=== PATIENT | female | born 1965 | race Caucasian/White ===

== ENCOUNTER 2023-08-25 09:04 | Day surgery (SDC) | payer BC ==
[2023-08-23 15:44] VITALS: BMI 39.7
[2023-08-25] MEDS ORDERED: Oxymetazoline HCl 0.05% (30 ML BOT) ONE ×2 (09:35→10:08)
[2023-08-25] MEDS ORDERED: SUCCINYLCHOLINE/SOD CL,ISO/PF 200 MG/10 ML SYRINGE FS ONE (10:05)
[2023-08-25] MEDS ORDERED: fentaNYL 50 mcg/mL 1 mL Vial ONE ×2 (10:05→11:00)
[2023-08-25] MEDS ORDERED: Lidocaine 2% PF 5 ML VIAL ONE (10:05)
[2023-08-25] MEDS ORDERED: PROPOFOL 20 ML ONE (10:05)
[2023-08-25] MEDS ORDERED: EPINEPHrine 1 MG/ML VIAL ONE (10:08)
[2023-08-25] MEDS ORDERED: Lidocaine 1% (PF) 30 ML VIAL ONE (10:08)
[2023-08-25] MEDS ORDERED: Famotidine/PF 20 mg/2ml Vial ONE (10:09)
[2023-08-25] MEDS ORDERED: Lidocaine 1% MPF 2 ML VIAL ONE (10:09)
[2023-08-25] MEDS ORDERED: Ondansetron PF 4 MG/2 ML Vial ONE (10:15)
[2023-08-25] MEDS ORDERED: Ketorolac Tromethamine 30 MG (1 mL) VIAL ONE (10:15)
[2023-08-25] MEDS ORDERED: Dexamethasone 4 mg/ml Vial ONE (10:15)
[2023-08-25] MEDS ORDERED: Metoclopramide HCl 10 MG (2 mL) VIAL ONE (10:20)
[2023-08-25 10:35] LABS: Hematocrit 42.7 % (36.0-47.0)
[2023-08-25] MEDS ORDERED: PHENYLEPHRINE-NS 100 MCG/ML 10 ML SYRINGE ONE (11:03)
[2023-08-25] MEDS ORDERED: Triamcinolone 40 MG/ML VIAL ONE (11:29)
[2023-08-25] MEDS ORDERED: Hydrocodone-Acetamin 15 ML UDCUP ONE (14:20)
== END 2023-08-25 15:15 | disposition home or self-care (01) ==
LOC: SDC 09:04
PROVIDERS: ATTEND Specialist
PROC: 09TT8ZZ Resection of Left Frontal Sinus, Via Natural or Artificial Opening Endoscopic (ICD-10-PCS; principal; 2023-08-25)
PROC: 09TU8ZZ Resection of Right Ethmoid Sinus, Via Natural or Artificial Opening Endoscopic (ICD-10-PCS; principal; 2023-08-25)
PROC: 09TX8ZZ Resection of Left Sphenoid Sinus, Via Natural or Artificial Opening Endoscopic (ICD-10-PCS; principal; 2023-08-25)
PROC: 09TW8ZZ Resection of Right Sphenoid Sinus, Via Natural or Artificial Opening Endoscopic (ICD-10-PCS; principal; 2023-08-25)
PROC: 09TV8ZZ Resection of Left Ethmoid Sinus, Via Natural or Artificial Opening Endoscopic (ICD-10-PCS; principal; 2023-08-25)
PROC: 09TR8ZZ Resection of Left Maxillary Sinus, Via Natural or Artificial Opening Endoscopic (ICD-10-PCS; principal; 2023-08-25)
PROC: 09TL8ZZ Resection of Nasal Turbinate, Via Natural or Artificial Opening Endoscopic (ICD-10-PCS; principal; 2023-08-25)
PROC: 09TS8ZZ Resection of Right Frontal Sinus, Via Natural or Artificial Opening Endoscopic (ICD-10-PCS; principal; 2023-08-25)
PROC: 09TQ8ZZ Resection of Right Maxillary Sinus, Via Natural or Artificial Opening Endoscopic (ICD-10-PCS; principal; 2023-08-25)
DX: J34.3 Hypertrophy of nasal turbinates (principal); J32.4 Chronic pansinusitis; J01.91 Acute recurrent sinusitis, unspecified; H91.93 Unspecified hearing loss, bilateral; J33.9 Nasal polyp, unspecified; E11.9 Type 2 diabetes mellitus without complications; E03.9 Hypothyroidism, unspecified; Z90.710 Acquired absence of both cervix and uterus; Z79.890 Hormone replacement therapy; Z79.4 Long term (current) use of insulin; Z88.1 Allergy status to other antibiotic agents
CPT/HCPCS: 36416; 85014; 93005; 93010; J0171; J1100; J1885; J2001; J2405; J2704; J2765; J3010; J3301; S0028